=== PATIENT | male | born 1945 | race Two or more races ===

== ENCOUNTER 2016-11-23 19:18 | Inpatient (IN) | payer MEDICARE ==
[~2016-11-23] VITALS: Ht 180.3 cm; Wt 107.5 kg
[2016-11-23] MEDS ORDERED: UNOBMED (19:29)
[2016-11-23] MEDS ORDERED: Aspirin Baby 81mg ORAL ONE (19:30)
[2016-11-23 19:31] VITALS: BP 133/72
[2016-11-23 19:43] LABS: BASOPHILS % (AUTO) 1.3 % (0.0-2.0); EOSINOPHILS % (AUTO) 4.5 % (0.0-3.0); LYMPHOCYTES % (AUTO) 24.5 % (20.0-45.0); MEAN CORPUSCULAR HEMOGLOBIN 34.3 PG (27.0-31.0); MEAN CORPUSCULAR HGB CONC 33.8 G/DL (32.0-36.0); MEAN CORPUSCULAR VOLUME 101 FL (80-99); MONOCYTES % (AUTO) 8.3 % (1.0-10.0); NEUTROPHILS % (AUTO) 61.5 % (45.0-75.0); PLATELET COUNT 131 K/UL (150-450); RED BLOOD COUNT 4.62 M/UL (4.70-6.10); RED CELL DISTRIBUTION WIDTH 11.5 % (11.6-14.8); WHITE BLOOD COUNT 6.9 K/UL (4.8-10.8)
[2016-11-23 20:08] LABS: ALANINE AMINOTRANSFERASE 19 U/L (3-41); ALBUMIN/GLOBULIN RATIO 1.2 (1.0-2.7); ANION GAP 14 (5-15); ASPARTATE AMINO TRANSFERASE 22 U/L (5-40); CALCIUM 10.7 mg/dL (8.6-10.2); CARBON DIOXIDE 24 mEQ/L (20-30); CHLORIDE 100 mEQ/L (98-107); CREATININE 1.1 mg/dL (0.7-1.2); HEMOLYSIS 12; POTASSIUM 3.7 mEQ/L (3.4-4.9); SODIUM 138 mEQ/L (135-145); TROPONIN I < 0.30 ng/mL (<=0.30)
[2016-11-23 20:18] LABS: CKMB 4.1 ng/mL (< 6.7)
[2016-11-23 22:04] VITALS: BP 101/70
--- NOTE | 2016-11-23 23:35 | Emergency Room Report ---
History of Present Illness General Chief Complaint: Chest Pain Source: Patient, EMS Present Illness HPI Patient is 71-year-old male who presented after increased chest pain. Patient had onset of symptoms during rest. The patient been given nitroglycerin by paramedics as well as aspirin with resolution of his chest pain. Patient had prior history of dementia. He denies any current pain at this time. Patient had EKG done by EMS which showed rapid heartbeat as well as ST depression in multiple leads. Patient prior history of dementia and history is limited by patient's history dementia Allergies: Coded Allergies: No Known Allergies (Unverified , 11/23/16) Patient History Past Medical History: see triage record Reviewed Nursing Documentation: PMH: Agreed, PSxH: Agreed Nursing Documentation-PMH Hx Neurological Problems: Yes - parkinsons Review of Systems All Other Systems: limited - by mental status Physical Exam Vital Signs Date Time Temp Pulse Resp B/P (MAP) Pulse Ox O2 Delivery O2 Flow Rate FiO2 11/23/16 19:24 98.2 93 18 147/101 95 Room Air Sp02 EP Interpretation: reviewed, normal General Appearance: normal inspection, well appearing, no apparent distress, alert, GCS 15 Head: atraumatic ENT: normal ENT inspection, hearing grossly normal, normal voice Neck: normal inspection, full range of motion, supple, no bony tend Respiratory: normal inspection, lungs clear, normal breath sounds, no respiratory distress, no retraction, no wheezing Cardiovascular #1: regular rate, rhythm, no edema Gastrointestinal: normal inspection, normal bowel sounds, non tender, soft, no guarding, no hernia Genitourinary: no CVA tenderness Musculoskeletal: normal inspection, back normal, normal range of motion Neurologic: normal inspection, alert, responsive, furniture assembler III-XII nml as tested, speech normal, other - resting tremor Psychiatric: normal inspection, judgement/insight normal, mood/affect normal Skin: normal inspection, normal color, no rash Medical Decision Making Diagnostic Impression: Primary Impression: Chest pain Additional Impression: ACS (acute coronary syndrome) ER Course Patient presented for chest pain. Differential diagnosis included but was not limited to acute coronary syndrome, pulmonary embolism, pneumonia, aortic dissection, shingles, pneumothorax, aortic dissection, esophageal rupture, pericarditis. Because of complexity of patient's case laboratory testing and imaging studies were ordered.Patient was given aspirin by EMS. Patient was noted to have EKG with normal sinus rhythm with a rate of 76 short OH interval the nonspecific the ST changes. Dr. Jensen Dalton was contacted for inpatient management. Labs Test 11/23/16 19:30 White Blood Count 6.9 K/UL (4.8-10.8) Red Blood Count 4.62 M/UL (4.70-6.10) Hemoglobin 15.8 G/DL (14.2-18.0) Hematocrit 46.8 % (42.0-52.0) Mean Corpuscular Volume 101 FL (80-99) Mean Corpuscular Hemoglobin 34.3 PG (27.0-31.0) Mean Corpuscular Hemoglobin Concent 33.8 G/DL (32.0-36.0) Red Cell Distribution Width 11.5 % (11.6-14.8) Platelet Count 131 K/UL (150-450) Mean Platelet Volume 9.0 FL (6.5-10.1) Neutrophils (%) (Auto) 61.5 % (45.0-75.0) Lymphocytes (%) (Auto) 24.5 % (20.0-45.0) Monocytes (%) (Auto) 8.3 % (1.0-10.0) Eosinophils (%) (Auto) 4.5 % (0.0-3.0) Basophils (%) (Auto) 1.3 % (0.0-2.0) Sodium Level 138 mEQ/L (135-145) Potassium Level 3.7 mEQ/L (3.4-4.9) Chloride Level 100 mEQ/L (98-107) Carbon Dioxide Level 24 mEQ/L (20-30) Anion Gap 14 (5-15) Blood Urea Nitrogen 23 mg/dL (7-23) Creatinine 1.1 mg/dL (0.7-1.2) Estimat Glomerular Filtration Rate mL/min (>60) Glucose Level 192 mg/dL (74-106) Calcium Level 10.7 mg/dL (8.6-10.2) Total Bilirubin 0.4 mg/dL (0.0-1.2) Aspartate Amino Transf (AST/SGOT) 22 U/L (5-40) Alanine Aminotransferase (ALT/SGPT) 19 U/L (3-41) Alkaline Phosphatase 78 U/L (40-129) Total Creatine Kinase 140 U/L (38-174) Creatine Kinase MB 4.1 ng/mL (< 6.7) Creatine Kinase MB Relative Index 2.9 Troponin I < 0.30 ng/mL (<=0.30) Pro-B-Type Natriuretic Peptide 281 pg/mL (0-125) Total Protein 7.0 g/dL (6.6-8.7) Albumin 3.9 g/dL (3.5-5.2) Globulin 3.1 g/dL Albumin/Globulin Ratio 1.2 (1.0-2.7) EKG Diagnostic Results Rate: normal Rhythm: NSR ST Segments: no acute changes ASA given to the pt in ED: No Rhythm Strip Diag. Results EP Interpretation: yes Rhythm: NSR, other - frequent pvcs Last Vital Signs Date Time Temp Pulse Resp B/P (MAP) Pulse Ox O2 Delivery O2 Flow Rate FiO2 11/23/16 22:04 98.2 69 18 101/70 96 Room Air Disposition: ADMITTED INPATIENT Condition: Serious Referrals: NOT CHOSEN IPA/,REFERRING (PCP) Albert Anderson Nov 23, 2016 23:35
[2016-11-23 23:37] VITALS: BP 131/110
[2016-11-24] VITALS (8 sets, daily range): BP systolic 104–148; BP diastolic 68–86
[2016-11-24] MEDS: Metoprolol 25mg tab ORAL SCH ×3 (01:13→21:49)
[2016-11-24] MEDS: Aspirin Baby 81mg ORAL SCH (08:51)
[2016-11-24 09:13] LABS: ALANINE AMINOTRANSFERASE 22 U/L (3-41); ALBUMIN/GLOBULIN RATIO 1.1 (1.0-2.7); ANION GAP 12 (5-15); ASPARTATE AMINO TRANSFERASE 20 U/L (5-40); CALCIUM 10.3 mg/dL (8.6-10.2); CARBON DIOXIDE 24 mEQ/L (20-30); CHLORIDE 101 mEQ/L (98-107); CHOLESTEROL 187 mg/dL (< 200); CHOLESTEROL/HDL RATIO 4.6 (3.3-4.4); CREATININE 0.7 mg/dL (0.7-1.2); HEMOLYSIS 12; LDL CHOLESTEROL (CALC.) 131 mg/dL (60-99); SODIUM 137 mEQ/L (135-145); TOTAL PROTEIN 6.6 g/dL (6.6-8.7)
[2016-11-24 09:17] LABS: THYROID STIMULATING HORMONE 0.965 uIU/mL (0.300-4.500)
--- NOTE | 2016-11-24 10:48 | History & Physical ---
History and Physical History & Physicial 71-year-old male who presented for chest pain. Patient had onset of symptoms during rest and has been persistent. The patient been given nitroglycerin by paramedics as well as aspirin with resolution of his chest pain. Patient with some confusion and dementia. He admits to persistent pain. Patient had EKG done by EMS which showed rapid heartbeat as well as ST depression in multiple leads. Patient prior history of dementia and history is limited by patient's history dementia. care discussed with the family in detail. Allergies: No Known Allergies (Unverified , 11/23/16) Past Medical History: Dementia, Parkinsons disease Family history: not contributory to the above Med/Allergy: reviewed and reconciled Physical exam WDWN NAD clear breath sounds bilaterally without rhonchi or wheeze [id number] without MRG NABS nontender no HSM no CCE nonfocal Laboratory Tests Test 11/23/16 19:30 11/24/16 08:00 White Blood Count 6.9 K/UL (4.8-10.8) Red Blood Count 4.62 M/UL (4.70-6.10) L Hemoglobin 15.8 G/DL (14.2-18.0) Hematocrit 46.8 % (42.0-52.0) Mean Corpuscular Volume 101 FL (80-99) H Mean Corpuscular Hemoglobin 34.3 PG (27.0-31.0) H Mean Corpuscular Hemoglobin Concent 33.8 G/DL (32.0-36.0) Red Cell Distribution Width 11.5 % (11.6-14.8) L Platelet Count 131 K/UL (150-450) L Mean Platelet Volume 9.0 FL (6.5-10.1) Neutrophils (%) (Auto) 61.5 % (45.0-75.0) Lymphocytes (%) (Auto) 24.5 % (20.0-45.0) Monocytes (%) (Auto) 8.3 % (1.0-10.0) Eosinophils (%) (Auto) 4.5 % (0.0-3.0) H Basophils (%) (Auto) 1.3 % (0.0-2.0) Sodium Level 138 mEQ/L (135-145) 137 mEQ/L (135-145) Potassium Level 3.7 mEQ/L (3.4-4.9) 4.0 mEQ/L (3.4-4.9) Chloride Level 100 mEQ/L (98-107) 101 mEQ/L (98-107) Carbon Dioxide Level 24 mEQ/L (20-30) 24 mEQ/L (20-30) Anion Gap 14 (5-15) 12 (5-15) Blood Urea Nitrogen 23 mg/dL (7-23) 15 mg/dL (7-23) Creatinine 1.1 mg/dL (0.7-1.2) 0.7 mg/dL (0.7-1.2) Estimat Glomerular Filtration Rate mL/min (>60) mL/min (>60) Glucose Level 192 mg/dL (74-106) H 209 mg/dL (74-106) H Calcium Level 10.7 mg/dL (8.6-10.2) H 10.3 mg/dL (8.6-10.2) H Total Bilirubin 0.4 mg/dL (0.0-1.2) 0.6 mg/dL (0.0-1.2) Aspartate Amino Transf (AST/SGOT) 22 U/L (5-40) 20 U/L (5-40) Alanine Aminotransferase (ALT/SGPT) 19 U/L (3-41) 22 U/L (3-41) Alkaline Phosphatase 78 U/L (40-129) 67 U/L (40-129) Total Creatine Kinase 140 U/L (38-174) Creatine Kinase MB 4.1 ng/mL (< 6.7) Creatine Kinase MB Relative Index 2.9 Troponin I < 0.30 ng/mL (<=0.30) Pro-B-Type Natriuretic Peptide 281 pg/mL (0-125) H Total Protein 7.0 g/dL (6.6-8.7) 6.6 g/dL (6.6-8.7) Albumin 3.9 g/dL (3.5-5.2) 3.5 g/dL (3.5-5.2) Globulin 3.1 g/dL 3.1 g/dL Albumin/Globulin Ratio 1.2 (1.0-2.7) 1.1 (1.0-2.7) Triglycerides Level 75 mg/dL (< 150) Cholesterol Level 187 mg/dL (< 200) LDL Cholesterol 131 mg/dL (60-99) H HDL Cholesterol 41 mg/dL (> 60) Cholesterol/HDL Ratio 4.6 (3.3-4.4) H Thyroid Stimulating Hormone (TSH) 0.965 uIU/mL (0.300-4.500) IMPRESSION chest pain ACS dementia Parkinsons disease PLAN serial troponin nitrates aspirin cardiology followup impression, plan, and exam edited and reviewed in detail care discussed with MARBIN LOPEZ Nov 24, 2016 10:48
[2016-11-24] MEDS ORDERED: Milk of Magnesia 30ml Ud ORAL ONE (11:30)
--- NOTE | 2016-11-24 12:47 | Diagnostic Imaging Report ---
Indication: Dyspnea Comparison: None A single view chest radiograph was obtained. Findings: Mild interstitial opacities are present with prominent vascularity and borderline cardiomegaly. Bones are osteopenic. Impression: Suspected mild interstitial edema.
[2016-11-24] MEDS: Docusate 100mg cap ORAL SCH (19:43)
[2016-11-24] MEDS ORDERED: [UNRECOGNIZED DRUG - OTHER] PO (20:16)
[2016-11-24] MEDS ORDERED: NAMENDA10 MG ORAL (20:16)
[2016-11-24] MEDS ORDERED: SINEMET 25/1001 EA ORAL (20:16)
[2016-11-24] MEDS ORDERED: ALPRAZOLAM0.5 M2 ORAL (20:16)
[2016-11-24] MEDS ORDERED: Heparin 5000 units/ml inj SUBQ SCH (21:00)
[2016-11-24] MEDS ORDERED: Nitroglycerin Subl 0.4mg tab (Bottle Of 25) SL PRN (21:15)
[2016-11-25] MEDS ORDERED: ALPRAZolam 0.5mg tab ORAL ONE
[2016-11-25 04:12] VITALS: BP 114/58
[2016-11-25 06:48] LABS: BASOPHILS % (AUTO) 0.8 % (0.0-2.0); EOSINOPHILS % (AUTO) 3.3 % (0.0-3.0); LYMPHOCYTES % (AUTO) 24.4 % (20.0-45.0); MEAN CORPUSCULAR HEMOGLOBIN 34.4 PG (27.0-31.0); MEAN CORPUSCULAR VOLUME 101 FL (80-99); MEAN PLATELET VOLUME 8.8 FL (6.5-10.1); MONOCYTES % (AUTO) 7.9 % (1.0-10.0); NEUTROPHILS % (AUTO) 63.6 % (45.0-75.0); PLATELET COUNT 140 K/UL (150-450); RED BLOOD COUNT 4.64 M/UL (4.70-6.10); RED CELL DISTRIBUTION WIDTH 11.6 % (11.6-14.8); WHITE BLOOD COUNT 7.1 K/UL (4.8-10.8)
--- NOTE | 2016-11-25 07:01 | Progress Note ---
DATE: 11/24/2016 CARDIOLOGY PROGRESS NOTE Subjective: The patient is confused. He gets easily fatigued and short of breath with activity in the room. He had chest pain again this evening. It did resolve spontaneously. His concomitant EKG revealed sinus rhythm with no acute ST changes, but nonspecific ST-T wave abnormalities. OBJECTIVE: Vital Signs: Blood pressure 148/80, pulse 62, respiratory rate 20, and afebrile. NECK: Supple. LUNGS: Diminished breath sounds. Cardiac: Regular rhythm and rate. Normal S1 and S2 with a fourth heart sound. ABDOMEN: Obese and soft. No focal tenderness. EXTREMITIES: Trace dependent edema. Laboratory And Diagnostic Data: Total cholesterol 187 with LDL of 131 and HDL of 41. Troponin #2 is pending. Chemistry panel within normal limits. A 2D echocardiogram reviewed normal ejection fraction with concentric hypertrophy and diastolic relaxation abnormality. IMPRESSION: 1. Acute coronary syndrome. 2. Dyslipidemia. 3. Hypertensive heart disease. 4. Parkinson's disease with dementia. 5. Nonsustained ventricular ectopy. 6. Sinus bradycardia, on beta-kylah. PLAN: 1. Cardiac monitoring. 2. Nitrates p.r.n. chest pain. 3. Continued anti-platelet and anti-lipid therapy. 4. Titrate antihypertensive control. 5. Decrease beta-kylah dosing. 6. Adenosine myocardial perfusion scan to assess coronary flow reserve. Regino Guzman M.D. DR: NEY JOB#: [id number] CC:
[2016-11-25 08:00] VITALS: BP 156/102
[2016-11-25 08:06] LABS: ALANINE AMINOTRANSFERASE 20 U/L (3-41); ALBUMIN/GLOBULIN RATIO 1.2 (1.0-2.7); ANION GAP 10 (5-15); ASPARTATE AMINO TRANSFERASE 18 U/L (5-40); CALCIUM 10.9 mg/dL (8.6-10.2); CARBON DIOXIDE 26 mEQ/L (20-30); CHLORIDE 102 mEQ/L (98-107); CREATININE 0.7 mg/dL (0.7-1.2); HEMOLYSIS 18; POTASSIUM 4.4 mEQ/L (3.4-4.9); SODIUM 138 mEQ/L (135-145); TOTAL PROTEIN 6.4 g/dL (6.6-8.7)
[2016-11-25 08:07] LABS: TROPONIN I 0.37 ng/mL (<=0.30)
[2016-11-25] MEDS: Aspirin Baby 81mg ORAL SCH (08:29)
[2016-11-25] MEDS: Memantine 10mg tab ORAL SCH (08:29)
[2016-11-25] MEDS: Docusate 100mg cap ORAL SCH ×2 (08:33→18:01)
[2016-11-25] MEDS ORDERED: Heparin 5000 units/ml inj SUBQ SCH (09:00)
[2016-11-25 11:51] VITALS: BP 113/60
--- NOTE | 2016-11-25 12:15 | Physician Query ---
PLEASE COMPLETE DOCUMENT BEFORE SIGNING Dear Dr. Bravo Date: _11/25/2016 Hr Recruiter/CDS Name: _Talib Gomez MD__ Hr Recruiter/CDS Phone No.: _Ext #[phone]____ Exercise your independent professional judgment when responding to the query. Questions asked do not imply a particular answer is desired or expected. We greatly appreciate your clarification on this issue. CLINICAL FINDINGS SHOW: Troponin elevated to 0.37 ng/mL per test result on 11/25/16 at 05:35 Please respond to the following question: Is there a diagnosis specific to these symptoms or values? If so please state below. PHYSICIAN RESPONSE: Condition Present on Admission: [] Yes [] No []Clinically Undeterminable Please also document in your Progress Notes and/or Discharge Summary and indicate if the condition was present on admission. Regino Guzman M.D. Date & Time [facility]
[2016-11-25 12:24] LABS: TROPONIN I < 0.30 ng/mL (<=0.30)
[2016-11-25] MEDS: Metoprolol 25mg tab ORAL SCH ×2 (14:00→20:24)
--- NOTE | 2016-11-25 15:10 | General Progress Note ---
Assessment/Plan Assessment/Plan IMPRESSION chest pain ACS dementia Parkinsons disease PLAN serial troponin nitrates aspirin heparin cardiology followup and recommendations pending not ready for discharge impression, plan, and exam edited and reviewed in detail care discussed with RN Subjective Allergies: Coded Allergies: No Known Allergies (Unverified , 11/23/16) Subjective care noted and reviewed troponin elevated stress cancelled cards aware Objective Last 24 Hour Vital Signs Date Time Temp Pulse Resp B/P (MAP) Pulse Ox O2 Delivery O2 Flow Rate FiO2 11/25/16 14:00 57 113/60 11/25/16 12:00 62 11/25/16 11:51 96.9 57 20 113/60 100 Room Air 11/25/16 08:00 97.5 60 22 156/102 99 Room Air 11/25/16 08:00 57 11/25/16 04:12 98.8 56 21 114/58 94 Room Air 11/25/16 04:00 61 11/25/16 00:00 59 11/24/16 23:57 98.1 60 18 136/68 96 Room Air 11/24/16 21:49 62 148/80 11/24/16 20:04 97.3 62 20 148/80 98 Room Air 11/24/16 20:00 99 11/24/16 16:00 54 11/24/16 15:29 98.6 56 18 140/74 96 Room Air Intake and Output 11/25/16 11/26/16 19:00 07:00 Intake Total 250 ml Balance 250 ml Intake Oral 250 ml Laboratory Tests 11/25/16 05:30: White Blood Count 7.1, Red Blood Count 4.64L, Hemoglobin 16.0, Hematocrit 47.0, Mean Corpuscular Volume 101H, Mean Corpuscular Hemoglobin 34.4H, Mean Corpuscular Hemoglobin Concent 34.0, Red Cell Distribution Width 11.6, Platelet Count 140L, Mean Platelet Volume 8.8, Neutrophils (%) (Auto) 63.6, Lymphocytes ( %) (Auto) 24.4, Monocytes (%) (Auto) 7.9, Eosinophils (%) (Auto) 3.3H, Basophils (%) (Auto) 0.8 11/25/16 05:35: Sodium Level 138, Potassium Level 4.4, Chloride Level 102, Carbon Dioxide Level 26, Anion Gap 10, Blood Urea Nitrogen 12, Creatinine 0.7, Estimat Glomerular Filtration Rate , Glucose Level 137H, Calcium Level 10.9H, Total Bilirubin 0.6, Aspartate Amino Transf (AST/SGOT) 18, Alanine Aminotransferase (ALT/SGPT) 20, Alkaline Phosphatase 70, Troponin I 0.37*H, Total Protein 6.4L, Albumin 3.6, Globulin 2.8, Albumin/Globulin Ratio 1.2, Thyroid Stimulating Hormone (TSH) 1.410 11/25/16 11:55: Troponin I < 0.30 Height (Feet): 5 Height (Inches): 11.00 Weight (Pounds): 237 Objective WDWN NAD clear breath sounds bilaterally without rhonchi or wheeze [id number] without MRG NABS nontender no HSM no CCE nonfocal MARBIN HU Nov 25, 2016 15:09
[2016-11-25 16:00] VITALS: BP 99/58
--- NOTE | 2016-11-25 18:15 | Consultation ---
DATE OF CONSULTATION: 11/23/2016 CARDIOLOGY CONSULTATION REQUESTING PHYSICIAN: Jensen Dalton M.D. REASON FOR CONSULTATION: Chest pain. History Of Present Illness: This is a 71-year-old male, who presented to the emergency room complaining of chest pain. His symptoms occurred at rest. The patient was given nitroglycerin by paramedics and apparently improved. Aspirin was given as well. The patient does have history of Parkinson disease with some degree of dementia. He is unable to give much detailed history. At the time of his initial emergency room evaluation, he was chest pain-free. His initial EKG performed in the field revealed sinus tachycardia with ST-T wave changes diffusely. PAST MEDICAL HISTORY: Otherwise unknown. ALLERGIES: None. MEDICATIONS: Prior to admission, presently not available. FAMILY HISTORY: Noncontributory. SOCIAL HISTORY: No record of smoking, alcohol, or substance abuse. REVIEW OF SYSTEMS: Again, cannot be reliably obtained. PHYSICAL EXAMINATION: GENERAL: He is a moderately obese male, in no acute distress. Vital Signs: Initial blood pressure 147/101 with heart rate 93 and respiratory rate 18. He was afebrile. Subsequent blood pressure 133/72, heart rate 75, and respiratory rate 18. HEENT: Conjunctivae pink. Sclerae are anicteric. Oropharynx clear. Mucous membranes moist. Neck: Supple. Jugular venous pressure is difficult to assess due to obesity. No thyromegaly. Lungs: With diminished breath sounds. No wheezing or rales. Increased AP diameter of the chest. No gynecomastia. CARDIAC: Regular rhythm and rate. Distant S1 and S2 with no murmur. ABDOMEN: Obese and soft. EXTREMITIES: Good pulses with no edema. Neurologic: Reveals slight increased rigidity and tone. Mild confusion. Laboratory And Diagnostic Data: EKG revealed sinus tachycardia with occasional PVCs and nonspecific ST-T wave changes. Troponin #1 is negative. Brain-natriuretic peptide is 281. Potassium 3.7, BUN 22, and creatinine 1.1. IMPRESSION: 1. Acute coronary syndrome. 2. Hypertensive urgency. 3. History of Parkinson disease with dementia. 4. Nonsustained ventricular ectopy. PLAN OF CARE: 1. Cardiac monitoring. 2. Nasal oxygen. 3. Oral aspirin. 4. Check lipid panel. 5. P.r.n. nitrates for chest pain. 6. Beta-blockade. 7. Echocardiogram. 8. Assessment of coronary flow reserve to follow. 9. Serial troponin levels will be checked. Regino Guzman M.D. DR: NEY JOB#: [id number] CC:
[2016-11-25 20:00] VITALS: BP 111/71
[2016-11-25] MEDS ORDERED: Fleet's Enema 133ml RECTAL SCH (20:00)
[2016-11-25] MEDS ORDERED: ALPRAZolam 0.5mg tab ORAL SCH (21:00)
[2016-11-26] VITALS: BP 130/66
[2016-11-26 04:00] VITALS: BP 103/53
--- NOTE | 2016-11-26 05:45 | Progress Note ---
DATE: 11/25/2016 CARDIOLOGY PROGRESS NOTE Subjective: The patient has had chest pain last night. His troponin level increased to 0.37. Today, it normalized again. The patient has no recollection of any chest pain. He was evaluated today with his [id number] at bedside. OBJECTIVE: Vital Signs: Blood pressure 113/60, pulse 57, and respiratory rate 20. NECK: Supple. LUNGS: Clear. CARDIAC: Regular. Normal S1 and S2 with a fourth heart sound. ABDOMEN: Soft. EXTREMITIES: Trace edema. Laboratory And Diagnostic Data: White count 7 and hemoglobin 16. Potassium 4.4, BUN 12, and creatinine 0.7. EKG with sinus rhythm artifact with nonspecific ST changes. IMPRESSION: 1. Acute coronary syndrome. 2. Troponin bump. 3. 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 4. Hypertensive heart disease. 5. Diastolic dysfunction. 6. Dyslipidemia. 7. Nonsustained ventricular ectopy. PLAN: 1. Continue cardiac monitoring. 2. Anti-platelet and anti-lipid therapy. 3. Continue beta blockade. 4. Stress test was canceled today due to chest pain and rise in troponin level. The patient will need a noninvasive assessment of coronary flow reserve. He is anxious to leave the hospital. If his condition stabilizes over the next 24 hours, we may be able to pursue this test as an outpatient. Regino Guzman M.D. DR: NEY JOB#: [id number] CC:
[2016-11-26 08:24] VITALS: BP 120/56
[2016-11-26] MEDS: Docusate 100mg cap ORAL SCH (08:42)
[2016-11-26] MEDS: Aspirin Baby 81mg ORAL SCH (08:42)
[2016-11-26] MEDS: Memantine 10mg tab ORAL SCH (08:43)
[2016-11-26 08:44] VITALS: BP 120/56
[2016-11-26] MEDS: Metoprolol 25mg tab ORAL SCH (08:44)
--- NOTE | 2016-11-26 09:13 | General Progress Note ---
Assessment/Plan Assessment/Plan IMPRESSION chest pain ACS dementia Parkinsons disease PLAN serial troponin noted aspirin heparin cardiology followup and recommendations as outpatient dc home; cleared by cards impression, plan, and exam edited and reviewed in detail care discussed with RN Subjective Allergies: Coded Allergies: No Known Allergies (Unverified , 11/23/16) Subjective care noted and reviewed troponin normal; stress cancelled cards aware Objective Last 24 Hour Vital Signs Date Time Temp Pulse Resp B/P (MAP) Pulse Ox O2 Delivery O2 Flow Rate FiO2 11/26/16 08:44 76 120/56 11/26/16 08:24 98.7 76 20 120/56 99 Nasal Cannula 2.0 11/26/16 04:00 50 11/26/16 04:00 97.7 71 20 103/53 96 Room Air 11/26/16 00:00 54 11/26/16 00:00 97.7 66 20 130/66 96 Room Air 11/25/16 20:24 80 111/71 11/25/16 20:00 97.7 80 20 111/71 97 Room Air 11/25/16 20:00 72 11/25/16 16:00 97.2 57 20 99/58 97 Room Air 11/25/16 16:00 58 11/25/16 14:00 57 113/60 11/25/16 12:00 62 11/25/16 11:51 96.9 57 20 113/60 100 Room Air Intake and Output 11/26/16 11/27/16 19:00 07:00 Intake Total 420 ml Balance 420 ml Intake Oral 420 ml Laboratory Tests 11/25/16 11:55: Troponin I < 0.30 Height (Feet): 5 Height (Inches): 11.00 Weight (Pounds): 237 Objective WDWN NAD clear breath sounds bilaterally without rhonchi or wheeze [id number] without MRG NABS nontender no HSM no CCE nonfocal MARBIN HU Nov 26, 2016 09:13
--- NOTE | 2016-11-27 06:45 | Progress Note ---
DATE: 11/26/2016 CARDIOLOGY PROGRESS NOTE Subjective: The patient has no recurring chest pain. He is anxious to go home. OBJECTIVE: Vital Signs: Blood pressure 120/56, pulse 76, respiratory rate 20, and afebrile. NECK: Supple. LUNGS: Clear. CARDIAC: Regular. Normal S1 and S2 with a fourth heart sound. ABDOMEN: Obese. EXTREMITIES: No edema. NEUROLOGIC: With increased rigidity and mild dementia. LABORATORY DATA: Noted. IMPRESSION: 1. Acute coronary syndrome, now stabilized. 2. Hypertensive heart disease. 3. Parkinson's disease with dementia. PLAN: 1. Continue current medication regimen including anti-platelet, anti-lipid, and antihypertensive regimen. 2. Outpatient followup for stress testing. 3. Discussed with the patient's iuvtxkth-gw-fay yesterday. Regino Guzman M.D. DR: NEY JOB#: [id number] CC:
--- NOTE | 2016-11-27 16:03 | Cardiology Report ---
APPROVED REPORT EKG Measurement Heart [id number] [place] 128P [id number] Normal sinus rhythm with sinus arrhythmia Nonspecific ST and T wave abnormality Abnormal ECG
[2016-11-28] MEDS ORDERED: METOPROLOL TART25 MG ORAL (08:44)
[2016-11-28] MEDS ORDERED: ASPIRIN-LOW81 MG ORAL (08:44)
[2016-11-28] MEDS ORDERED: PRAVACHOL20 MG ORAL (08:44)
--- NOTE | 2016-11-28 08:51 | Discharge Summary ---
Discharge Summary Hospital Course Date of Admission Nov 23, 2016 at 22:02 Date of Discharge Nov 26, 2016 at 10:30 Admitting Diagnosis chest pain, acs HPI Leeroy Bella is a 71 year old male who was admitted on Nov 23, 2016 at 22:02 for Chest Pain, Acute Coronary Syndrome Hospital Course dc summary #[id number] Discharge Medications New Medications: Aspirin (Aspirin EC) 81 Mg Tablet.dr 81 MG ORAL DAILY, #30 TAB Metoprolol Tartrate* (Metoprolol Tartrate*) 25 Mg Tablet 25 MG ORAL EVERY 12 HOURS, #60 TAB Pravastatin Sod* (Pravachol*) 20 Mg Tablet 20 MG ORAL BEDTIME, #30 TAB Continued Medications: Alprazolam (Alprazolam) 0.5 Mg Tab.rapdis 0.5 MG ORAL PRN for Insomnia, TAB Levodopa/Carbidopa (Carbidopa-Levodopa 25-100 Tab) 1 Each Tablet 1 TAB ORAL THREE TIMES A DAY, TAB Memantine Hcl* (Namenda*) 10 Mg Tablet 20 MG ORAL DAILY, TAB Unable to Obtain Medications (Unable To Obtain Meds) 1 Ea Ea [nootropil] () 800 MG PO DAILY Discharge Discharge Disposition Patient was discharged to Home with Home Health(06) Discharge Diagnoses: Discharge Instructions Discharge Instructions Special Instructions I have been assigned to complete a D/C Summary on this account. I was not involved in the patient management Dafne Flor NP (Vanchtein) Nov 28, 2016 08:51
--- NOTE | 2016-11-28 16:10 | Cardiology Report ---
APPROVED REPORT EXAM: Two-dimensional and M-mode echocardiogram with Doppler and color Doppler. INDICATION Angina Pectoris M-Mode DIMENSIONS IVSd2.6 (0.7-1.1cm)Left Atrium (MM)4.3 (1.6-4.0cm) LVDd4.0 (3.5-5.6cm)Aortic Root3.2 (2.0-3.7cm) PWd1.7 (0.7-1.1cm)Aortic Cusp Exc.2.2 (1.5-2.0cm) LVDs2.5 (2.5-4.0cm) PWs2.5 cm Normal left ventricular chamber size, systolic function and wall motion. Left ventricular ejection fraction estimated to be 60-65 %. No evidence of left ventricular hypertrophy. No evidence of pericardial effusion. All other cardiac chamber sizes are within normal limits. Focal aortic valve sclerosis with adequate cusp excursion. Thickened mitral valve leaflets with normal excursion. Mild mitral annulus and aortic root calcification. Pulmonic valve not well visualized. Normal tricuspid valve structure. IVC is normal in size with physiological collapse. A color flow and spectral Doppler study was performed and revealed: No mitral regurgitation. Mitral diastolic velocities suggest reduced left ventricular relaxation c/w diastolic dysfunction grade 1. No tricuspid regurgitation.
--- NOTE | 2016-11-29 05:15 | Discharge Summary 2 SIG ---
DATE OF ADMISSION: 11/23/2016 DATE OF DISCHARGE: 11/26/2016 Reason for admission: 71-year-old male with a history of hypertension and Parkinson disease, presented with chest pain. Onset happened during the rest. The patient was given nitroglycerin and aspirin by the paramedics with resolution of chest pain. Upon arrival, the patient denied any chest pain. History was limited by underlying dementia. Troponin was negative. Stable hemoglobin and hematocrit. No leukocytosis. Chest x-ray revealed suspected mild interstitial edema, pro BNP -281. Pulse oximetry was stable on room air. EKG revealed normal sinus rhythm with sinus arrhythmia, nonspecific ST and T wave abnormalities. The patient was admitted for further management. ADMITTING DIAGNOSES: 1. Chest pain 2. Possible acute coronary syndrome. 3. Parkinson disease with dementia. 4. Hypertensive heart disease. Hospital Course: The patient was admitted to telemetry floor. Cardiology consult was requested. Echocardiogram revealed preserved ejection fraction of 60 to 65%. No evidence of LVH, mild diastolic dysfunction. The patient was on antiplatelets and anti-lipid regimen. Lipid panel revealed elevated LDL of 131. The patient's family was educated on low cholesterol diet. Second troponin minimally elevated -0.37. Stress test, which was initially scheduled by grinding operator to assess cardiac flow reserve, was canceled due to the elevated troponin. On telemetry noted nonsustained ventricular ectopy and sinus bradycardia. Beta-kylah dose was decreased. Blood pressure was stable with current regimen. Parkinson medications were continued. Supplemental oxygen and pulmonary toilet provided as needed. Pulse oximetry was stable on room air. TSH was within normal limits. Last troponin was negative. The patient was anxious to go home. Tool Pusher cleared for discharge and stressed importance of noninvasive cardiac stress test as an outpatient. The patient was stable for discharge home with home health services with continuation of antiplatelets, anti-lipid therapy, and antihypertensive regimen. Nitrates as needed for control of chest pain. DISCHARGE DIAGNOSES: 1. Acute coronary syndrome. 2. Dyslipidemia. 3. Hypertensive heart disease, 4. diastolic dysfunction, 5. Nonsustained ventricular ectopy. 6. Parkinson's disease with dementia. 7. Sinus bradycardia (dose of beta-kylah decreased). DISCHARGE MEDICATIONS: See medication reconciliation list. Discharge Instructions: The patient was discharged home with home health services. Follow up with primary medical doctor. Recommended noninvasive outpatient stress test. Jensen Dalton M.D. I have been assigned to dictate discharge summary on this account and I was not involved in the patient's management. Dafne Flor (Vanchtein) N.PMegan DR: Amalia JOB#: [id number] CC: MARTINA
== END 2016-11-26 10:30 | disposition home health service (06) | DRG 311 ==
LOC: EDBD 19:18 → EMR 19:58 → 2E 22:02 → EDBEDREQ 22:36
DX: I24.9 Acute ischemic heart disease, unspecified (principal); G20 Parkinson's disease; I11.9 Hypertensive heart disease without heart failure; I16.0 Hypertensive urgency; E78.5 Hyperlipidemia, unspecified; F02.80 Dementia in other diseases classified elsewhere, unspecified severity, without behavioral disturbance, psychotic disturbance, mood disturbance, and anxiety; I49.3 Ventricular premature depolarization
CPT/HCPCS: 36415; 71010; 80053; 80061; 82550; 82553; 83880; 84443; 84484; 85025; 93005; 93306; 99285

== ENCOUNTER 2016-12-01 15:48 | Emergency (ER) | payer MEDICARE ==
[~2016-12-01] VITALS: Ht 177.8 cm; Wt 90.7 kg
[~2016-12-01 15:48] MED LIST: ALPRAZOLAM0.5 M2 ORAL; ASPIRIN-LOW81 MG ORAL; METOPROLOL TART25 MG ORAL; NAMENDA10 MG ORAL; PRAVACHOL20 MG ORAL; SINEMET 25/1001 EA ORAL; UNOBMED; [UNRECOGNIZED DRUG - OTHER] PO
[2016-12-01 15:59] VITALS: BP 187/72
[2016-12-01] MEDS ORDERED: ALPRAZOLAM0.5 M2 ORAL (16:05)
[2016-12-01 16:10] VITALS: BP 165/72
--- NOTE | 2016-12-01 16:14 | Emergency Room Report ---
History of Present Illness General Chief Complaint: General Complaint Source: Patient, Medical Record Present Illness HPI [id number], recently DCed on 11/27 for chest pain Here for "cant sleep since DC from hospital." Requesting medication he got while he was admitted here which looks like 0.5mg xanax PRN insomnia at night Denies chest pain, SOB, abd pain, headache, fever/chills, nausea/vomiting, urinary complaints to name a few Ambulated into ED with cane assistance No complaints On admission: patient was r/o for ACS Initial trop 0, spike in 2nd trop, then normal 3rd trop Did not have stress test but cleared by Cardiology for DC Allergies: Coded Allergies: No Known Allergies (Unverified , 11/23/16) Patient History Past Medical History: HTN Past Surgical History: none Pertinent Family History: none Social History: Denies: smoking, alcohol use, drug use Immunizations: UTD Reviewed Nursing Documentation: PMH: Agreed, PSxH: Agreed Nursing Documentation-PMH Past Medical History: No History, Except For Hx Cardiac Problems: Yes - Bilateral knee surgery Hx Hypertension: Yes Hx Pacemaker: No Hx Asthma: No Hx COPD: No Hx Diabetes: No Hx Cancer: No Hx Gastrointestinal Problems: No Hx Neurological Problems: Yes - Parkinson' disease Hx Cerebrovascular Accident: No Hx Parkinson's Disease: Yes Hx Seizures: No Hx Tremors: Yes Review of Systems All Other Systems: negative except mentioned in HPI Physical Exam Vital Signs Date Time Temp Pulse Resp B/P (MAP) Pulse Ox O2 Delivery O2 Flow Rate FiO2 12/01/16 15:53 98.4 82 16 187/72 96 Room Air Sp02 EP Interpretation: reviewed, normal General Appearance: normal inspection, well appearing, no apparent distress, alert, GCS 15, non-toxic, other - Well appearing elderly male ambulating with cane Head: normocephalic, atraumatic Eyes: bilateral eye PERRL, bilateral eye EOMI ENT: normal ENT inspection, hearing grossly normal, normal voice Neck: normal inspection, full range of motion, supple, no bony tend Respiratory: normal inspection, lungs clear, normal breath sounds, no respiratory distress, no retraction, no wheezing Cardiovascular #1: regular rate, rhythm, no edema Gastrointestinal: normal inspection, normal bowel sounds, non tender, soft, no guarding, no hernia Genitourinary: no CVA tenderness Musculoskeletal: normal inspection, back normal, normal range of motion, Nicolasa' s Sign negative Neurologic: normal inspection, alert, oriented x3, responsive, 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, motor strength/tone normal, speech normal Psychiatric: normal inspection, judgement/insight normal, mood/affect normal Skin: normal inspection, normal color, no rash Lymphatic: normal inspection Medical Decision Making Diagnostic Impression: Primary Impression: Insomnia Qualified Codes: F51.05 - Insomnia due to other mental disorder; F99 - Mental disorder, not otherwise specified ER Course Insomnia likely d/t underlying dementia/parkinsons Patient also stays up late watching TV, sleeps during the day RX Xanax Info on insomnia provided Advised NO late-night TV, artificial lights, and avoid daytime naps Patient visiting from [place] but has MediCal but NO PMD Gave list of low-cost/free clinics and also advised STRICT PMD followup in next week Return for repeat chest pain, SOB, or other concerns Last Vital Signs Date Time Temp Pulse Resp B/P (MAP) Pulse Ox O2 Delivery O2 Flow Rate FiO2 12/01/16 15:53 98.4 82 16 187/72 96 Room Air Status: improved Disposition: HOME, SELF-CARE Condition: Improved Scripts Alprazolam (ALPRAZOLAM) 0.5 Mg Tab.rapdis 0.5 MG ORAL QHS for anxiety for 14 Days, #14 TAB Prov: SREEDHAR DUNCAN M.D. 12/01/16 Referrals: NOT CHOSEN IPA/,REFERRING (PCP) Patient Instructions: Insomnia Additional Instructions: - Please follow up with a primary care doctor or medical clinic in next week to re-evaluate patient and insomnia - Return to ER for chest pain, shortness of breath or other concerning symptoms - Take ONE 0.5mg tablet of xanax each night ONLY as needed for insomnia SREEDHAR DUNCAN M.D. Dec 01, 2016 16:14
== END 2016-12-01 16:10 | disposition home or self-care (01) ==
LOC: EMR 16:05
DX: G47.00 Insomnia, unspecified (principal); I10 Essential (primary) hypertension; G20 Parkinson's disease; R25.1 Tremor, unspecified
CPT/HCPCS: 99283

== ENCOUNTER 2016-12-15 17:51 | Emergency (ER) | payer MEDICARE ==
[~2016-12-15] VITALS: Ht 170.2 cm; Wt 2.6 kg
[2016-12-15 19:05] LABS: BASOPHILS % (AUTO) 0.9 % (0.0-2.0); EOSINOPHILS % (AUTO) 3.7 % (0.0-3.0); LYMPHOCYTES % (AUTO) 28.3 % (20.0-45.0); MEAN CORPUSCULAR HEMOGLOBIN 31.6 PG (27.0-31.0); MEAN CORPUSCULAR HGB CONC 31.7 G/DL (32.0-36.0); MEAN CORPUSCULAR VOLUME 100 FL (80-99); MEAN PLATELET VOLUME 8.4 FL (6.5-10.1); MONOCYTES % (AUTO) 9.5 % (1.0-10.0); NEUTROPHILS % (AUTO) 57.6 % (45.0-75.0); PLATELET COUNT 127 K/UL (150-450); RED BLOOD COUNT 4.85 M/UL (4.70-6.10); RED CELL DISTRIBUTION WIDTH 11.4 % (11.6-14.8); WHITE BLOOD COUNT 6.4 K/UL (4.8-10.8)
[2016-12-15 19:06] VITALS: BP 176/101
[2016-12-15 19:15] LABS: ALANINE AMINOTRANSFERASE 7 U/L (3-41); ALBUMIN/GLOBULIN RATIO 1.2 (1.0-2.7); ANION GAP 12 (5-15); ASPARTATE AMINO TRANSFERASE 15 U/L (5-40); CARBON DIOXIDE 25 mEQ/L (20-30); CHLORIDE 100 mEQ/L (98-107); CREATININE 0.8 mg/dL (0.7-1.2); HEMOLYSIS 5; POTASSIUM 3.9 mEQ/L (3.4-4.9); SODIUM 137 mEQ/L (135-145); TOTAL PROTEIN 7.1 g/dL (6.6-8.7)
[2016-12-15 19:19] LABS: TROPONIN I < 0.30 ng/mL (<=0.30)
[2016-12-15 19:50] LABS: APPEARANCE,URINE CLEAR; KETONES,URINE 2+ (NEGATIVE); LEUKOCYTE ESTERASE ,URINE 1+ (NEGATIVE); NITRITE,URINE NEGATIVE (NEGATIVE); PH,URINE 6.5 (4.5-8.0); PROTEIN,URINE 3+ (NEGATIVE); UROBILINOGEN,URINE 1 MG/DL (0.0-1.0)
[2016-12-15 19:57] LABS: CKMB 1.6 ng/mL (< 6.7)
[2016-12-15 20:09] LABS: BACTERIA,URINE FEW /HPF; RBC,URINE 0-2 /HPF (0 - 0); WBC,URINE 0-2 /HPF (0 - 0)
[2016-12-15 20:30] VITALS: BP 165/58
[2016-12-15 20:32] VITALS: BP 165/58
--- NOTE | 2016-12-15 21:00 | Emergency Room Report ---
History of Present Illness General Chief Complaint: Hypertension Source: Patient Present Illness HPI 71-year-old M presents ED for evaluation. Son at bedside states that patient has high blood pressure and blood pressures been higher than normal today. Systolic blood pressure greater than 200 earlier today. Patient has any chest pain. Denies any dizziness or headache. States states he had shortness of breath earlier today but denies any at this time. Denies fevers or chills. No aggravating relieving factors. Denies any other systems symptoms Allergies: Coded Allergies: No Known Allergies (Unverified , 11/23/16) Patient History Past Medical History: HTN Past Surgical History: none Pertinent Family History: none Social History: Denies: smoking, alcohol use, drug use Immunizations: UTD Reviewed Nursing Documentation: PMH: Agreed, PSxH: Agreed Nursing Documentation-PMH Past Medical History: No History, Except For Hx Cardiac Problems: Yes - Bilateral knee surgery Hx Hypertension: Yes Hx Pacemaker: No Hx Asthma: No Hx COPD: No Hx Diabetes: No Hx Cancer: No Hx Gastrointestinal Problems: No History Of Psychiatric Problem: No Hx Neurological Problems: Yes - Parkinson' disease Hx Cerebrovascular Accident: No Hx Parkinson's Disease: Yes Hx Seizures: No Hx Tremors: Yes Review of Systems All Other Systems: negative except mentioned in HPI Physical Exam Vital Signs Date Time Temp Pulse Resp B/P (MAP) Pulse Ox O2 Delivery O2 Flow Rate FiO2 12/15/16 17:58 98.1 65 16 176/101 99 Room Air Sp02 EP Interpretation: reviewed, normal General Appearance: no apparent distress, alert, GCS 15, non-toxic, obese Head: normocephalic, atraumatic Eyes: bilateral eye normal inspection, bilateral eye PERRL ENT: hearing grossly normal, normal pharynx, no angioedema, normal voice Neck: full range of motion, supple/symm/no masses Respiratory: chest non-tender, lungs clear, normal breath sounds, speaking full sentences Cardiovascular #1: regular rate, rhythm, no edema Cardiovascular #2: 2+ carotid (R), 2+ carotid (L), 2+ radial (R), 2+ radial (L) , 2+ dorsalis pedis (R), 2+ dorsalis pedis (L) Gastrointestinal: normal bowel sounds, non tender, soft, non-distended, no guarding, no rebound Rectal: deferred Genitourinary: normal inspection, no CVA tenderness Musculoskeletal: back normal, gait/station normal, normal range of motion, non- tender Neurologic: alert, oriented x3, responsive, motor strength/tone normal, sensory intact, speech normal Psychiatric: judgement/insight normal, memory normal, mood/affect normal, no suicidal/homicidal ideation Reflexes: 3+ bicep (R), 3+ bicep (L), 3+ tricep (R), 3+ tricep (L), 3+ knee (R) , 3+ knee (L) Skin: normal color, no rash, warm/dry, well hydrated Lymphatic: no adenopathy Medical Decision Making Diagnostic Impression: Primary Impression: Hypertension Qualified Codes: I10 - Essential (primary) hypertension ER Course Hospital Course 71-year-old male presents ED complaining of elevated BP, no symptoms at this time Differential diagnoses include: hypertensive urgency, hypertensive emergency, arrythmia, ND/ACS Clinical course Patient placed on stretcher. After initial history and physical I ordered labs , EKG, chest x-ray. labs reviewed- all electrolytes normal, troponins negative, no leukocytosis, hemoglobin/hematocrit stable EKG - NSR, no acute ischemic changes interpreted by me Chest x-ray-no cardiomegaly, no rib fracture, no pneumothorax, no acute process Upon reassessment patient's BP has reduced on its own without intervention. I offered patient option for admission they declined stating he would rather be discharged. Will take his blood pressure medications as directed. Will track his blood pressure and followup with PMD I. I feel this is a highly complex case requiring extensive working including EKG/Rhythm strip, Xray/CT/US, Blood/urine lab work, repeat exams while in ED, and administration of strong opiates/narcotics for pain control, admission to hospital or close patient follow up. Diagnosis - hypertension Stable and discharged to home. take medications as directed. Instructed to followup with PMD. Return to ED if symptoms recur or worsen Labs Test 12/15/16 18:40 12/15/16 19:30 White Blood Count 6.4 K/UL (4.8-10.8) Red Blood Count 4.85 M/UL (4.70-6.10) Hemoglobin 15.3 G/DL (14.2-18.0) Hematocrit 48.3 % (42.0-52.0) Mean Corpuscular Volume 100 FL (80-99) Mean Corpuscular Hemoglobin 31.6 PG (27.0-31.0) Mean Corpuscular Hemoglobin Concent 31.7 G/DL (32.0-36.0) Red Cell Distribution Width 11.4 % (11.6-14.8) Platelet Count 127 K/UL (150-450) Mean Platelet Volume 8.4 FL (6.5-10.1) Neutrophils (%) (Auto) 57.6 % (45.0-75.0) Lymphocytes (%) (Auto) 28.3 % (20.0-45.0) Monocytes (%) (Auto) 9.5 % (1.0-10.0) Eosinophils (%) (Auto) 3.7 % (0.0-3.0) Basophils (%) (Auto) 0.9 % (0.0-2.0) Sodium Level 137 mEQ/L (135-145) Potassium Level 3.9 mEQ/L (3.4-4.9) Chloride Level 100 mEQ/L (98-107) Carbon Dioxide Level 25 mEQ/L (20-30) Anion Gap 12 (5-15) Blood Urea Nitrogen 13 mg/dL (7-23) Creatinine 0.8 mg/dL (0.7-1.2) Estimat Glomerular Filtration Rate mL/min (>60) Glucose Level 120 mg/dL (74-106) Calcium Level 11.0 mg/dL (8.6-10.2) Total Bilirubin 0.9 mg/dL (0.0-1.2) Aspartate Amino Transf (AST/SGOT) 15 U/L (5-40) Alanine Aminotransferase (ALT/SGPT) 7 U/L (3-41) Alkaline Phosphatase 65 U/L (40-129) Total Creatine Kinase 49 U/L (38-174) Creatine Kinase MB 1.6 ng/mL (< 6.7) Creatine Kinase MB Relative Index 3.2 Troponin I < 0.30 ng/mL (<=0.30) Pro-B-Type Natriuretic Peptide 419 pg/mL (0-125) Total Protein 7.1 g/dL (6.6-8.7) Albumin 4.0 g/dL (3.5-5.2) Globulin 3.1 g/dL Albumin/Globulin Ratio 1.2 (1.0-2.7) Urine Color Yellow Urine Appearance Clear Urine pH 6.5 (4.5-8.0) Urine Specific [place] 1.015 (1.005-1.035) Urine Protein 3+ (NEGATIVE) Urine Glucose (UA) Negative (NEGATIVE) Urine Ketones 2+ (NEGATIVE) Urine Occult Blood 1+ (NEGATIVE) Urine Nitrite Negative (NEGATIVE) Urine Bilirubin Negative (NEGATIVE) Urine Urobilinogen 1 MG/DL (0.0-1.0) Urine Leukocyte Esterase 1+ (NEGATIVE) Urine RBC 0-2 /HPF (0 - 0) Urine WBC 0-2 /HPF (0 - 0) Urine Squamous Epithelial Cells None /LPF (NONE/OCC) Urine Bacteria Few /HPF (NONE) EKG Diagnostic Results Rate: normal Rhythm: NSR ST Segments: no acute changes ASA given to the pt in ED: No Rhythm Strip Diag. Results EP Interpretation: yes Rhythm: NSR, no PVC's, no ectopy Chest X-Ray Diagnostic Results Chest X-Ray Diagnostic Results : Chest X-Ray Ordered: Yes # of Views/Limited/Complete: 1 View Indication: Shortness of Breath EP Interpretation: Yes Interpretation: no consolidation, no effusion, no pneumothorax, no acute cardiopulmonary disease Impression: No acute disease Electronically Signed by: Electronically signed by Lalo Venegas MD Last Vital Signs Date Time Temp Pulse Resp B/P (MAP) Pulse Ox O2 Delivery O2 Flow Rate FiO2 12/15/16 17:58 98.1 65 16 176/101 99 Room Air Status: improved Disposition: HOME, SELF-CARE Condition: Stable Referrals: NOT CHOSEN IPA/,REFERRING (PCP) Patient Instructions: Hypertension, [id number] LALO VENEGAS M.D. Dec 15, 2016 21:00
--- NOTE | 2016-12-16 10:47 | Diagnostic Imaging Report ---
Indication: Dyspnea Comparison: 11/23/16 A single view chest radiograph was obtained. Findings: Interstitial opacities and prominent pulmonary demonstrated. Heart size is normal. The bones are slightly osteopenic. Impression: Mild interstitial edema
[2016-12-16] MEDS ORDERED: ATIVAN0.5 MG ORAL (21:44)
--- NOTE | 2016-12-22 23:26 | Cardiology Report ---
APPROVED REPORT EKG Measurement Heart [id number] HI 138P [id number] Normal sinus rhythm Normal ECG
== END 2016-12-15 20:32 | disposition home or self-care (01) ==
LOC: EMR 18:32 → EDBEDREQ 20:16 → EMR 20:32
DX: I10 Essential (primary) hypertension (principal); G20 Parkinson's disease
CPT/HCPCS: 36415; 71010; 80053; 81003; 82550; 82553; 83880; 84484; 85025; 93005; 99284

== ENCOUNTER 2016-12-16 18:15 | Emergency (ER) | payer MEDICARE ==
[~2016-12-16] VITALS: Ht 177.8 cm; Wt 90.7 kg
--- NOTE | 2016-12-16 18:32 | Emergency Room Report ---
History of Present Illness General Chief Complaint: To Be Triaged Source: Patient, Family Member Present Illness HPI 71YOM with chest pain for 1 month. Feels "very anxious because his a few months ago." Denies SOB, nausea/vomiting, diaphoresis, fever/chills, cough BP elevated on triage 12/15 CXR: mild insterstial edema. BNP 400. Tropo/ECG was normal. Patient signed out AMA - BP reduced on its own without intervention 11/24 Echo: Normal LV size and systolic function EF 60-65% Daughter endorses patient suffers from a lot of anxiety since of History of parkinons. Right arm tremor Allergies: Coded Allergies: No Known Allergies (Unverified , 11/23/16) Patient History Past Medical History: none Past Surgical History: none Pertinent Family History: none Social History: Denies: smoking, alcohol use, drug use Immunizations: UTD Reviewed Nursing Documentation: PMH: Agreed, PSxH: Agreed Nursing Documentation-PMH Hx Cardiac Problems: Yes - Bilateral knee surgery Hx Hypertension: Yes Hx Pacemaker: No Hx Asthma: No Hx COPD: No Hx Diabetes: No Hx Cancer: No Hx Gastrointestinal Problems: No Hx Neurological Problems: Yes - Parkinson' disease Hx Cerebrovascular Accident: No Hx Parkinson's Disease: Yes Hx Seizures: No Hx Tremors: Yes Review of Systems All Other Systems: negative except mentioned in HPI Physical Exam Sp02 EP Interpretation: reviewed, normal General Appearance: normal inspection, well appearing, no apparent distress, alert, GCS 15, non-toxic, other - Very anxious Head: normocephalic, atraumatic ENT: normal ENT inspection, hearing grossly normal, normal voice Neck: normal inspection, full range of motion, supple, no bony tend Respiratory: normal inspection, lungs clear, normal breath sounds, no respiratory distress, no retraction, no wheezing Cardiovascular #1: regular rate, rhythm, no edema Gastrointestinal: normal inspection, normal bowel sounds, non tender, soft, no guarding, no hernia Genitourinary: no CVA tenderness Musculoskeletal: normal inspection, back normal, normal range of motion, Nicolasa' s Sign negative Neurologic: normal inspection, alert, oriented x3, responsive, speech normal, other - Right hand resting tremor Psychiatric: normal inspection, judgement/insight normal, mood/affect normal Skin: normal inspection, normal color, no rash, warm/dry Lymphatic: normal inspection Medical Decision Making Diagnostic Impression: Primary Impression: Hypertension ER Course BP came down to 120/80 without ED intervention CXR unchanged from yesterday ECG remains NSR. Labs: No leuks. H&H stable. Troponin <0.05 Given PO ativan with improvement in anxiety Unlikely ACS given improvement with ativan, under a lot of stress with 's recent passing, normal labs/ECG last 2 days here PMD followup as needed Rx ativan EKG Diagnostic Results Rate: normal Rhythm: NSR Rhythm Strip Diag. Results EP Interpretation: yes Rate: 61 Rhythm: NSR, no ectopy, other - PVCs Chest X-Ray Diagnostic Results Chest X-Ray Diagnostic Results : Chest X-Ray Ordered: Yes # of Views/Limited/Complete: 1 View Indication: Chest Pain EP Interpretation: Yes Interpretation: no consolidation, no effusion, no pneumothorax, no acute cardiopulmonary disease Impression: No acute disease Electronically Signed by: Dr Sreedhar Duncan Status: improved Disposition: HOME, SELF-CARE Scripts Lorazepam* (ATIVAN*) 0.5 Mg Tablet 0.5 MG ORAL BID for For Anxiety for 7 Days, #30 TAB Prov: SREEDHAR DUNCAN M.D. 12/16/16 SREEDHAR DUNCAN M.D. Dec 16, 2016 18:32
[2016-12-16] MEDS ORDERED: LORazepam 0.5mg tab ORAL ONE (19:00)
[2016-12-16 19:20] VITALS: BP 147/58
[2016-12-16 19:27] LABS: BASOPHILS % (AUTO) 0.8 % (0.0-2.0); EOSINOPHILS % (AUTO) 3.5 % (0.0-3.0); LYMPHOCYTES % (AUTO) 23.3 % (20.0-45.0); MEAN CORPUSCULAR HEMOGLOBIN 31.3 PG (27.0-31.0); MEAN CORPUSCULAR HGB CONC 31.5 G/DL (32.0-36.0); MEAN CORPUSCULAR VOLUME 99 FL (80-99); MEAN PLATELET VOLUME 9.7 FL (6.5-10.1); MONOCYTES % (AUTO) 6.7 % (1.0-10.0); NEUTROPHILS % (AUTO) 65.7 % (45.0-75.0); PLATELET COUNT 148 K/UL (150-450); RED BLOOD COUNT 4.93 M/UL (4.70-6.10); RED CELL DISTRIBUTION WIDTH 11.3 % (11.6-14.8); WHITE BLOOD COUNT 8.1 K/UL (4.8-10.8)
[2016-12-16 21:16] LABS: ALANINE AMINOTRANSFERASE 16 U/L (3-41); ALBUMIN/GLOBULIN RATIO 1.6 (1.0-2.7); ANION GAP 15 (5-15); ASPARTATE AMINO TRANSFERASE 16 U/L (5-40); CALCIUM 11.1 mg/dL (8.6-10.2); CARBON DIOXIDE 22 mEQ/L (20-30); CHLORIDE 100 mEQ/L (98-107); CREATININE 0.7 mg/dL (0.7-1.2); HEMOLYSIS 52; POTASSIUM 4.3 mEQ/L (3.4-4.9); SODIUM 137 mEQ/L (135-145); TOTAL PROTEIN 6.8 g/dL (6.6-8.7)
[2016-12-16 21:26] LABS: CKMB 2.1 ng/mL (< 6.7)
[2016-12-16] MEDS ORDERED: ATIVAN0.5 MG ORAL (21:44)
[2016-12-16 21:45] VITALS: BP 154/82
[2016-12-16 21:50] VITALS: BP 154/82
--- NOTE | 2016-12-17 10:24 | Diagnostic Imaging Report ---
Indication: Chest pain Technique: XRAY CHEST 1 V Comparison: 12/15/16 Findings: Cardiomediastinal silhouette is stable. Atherosclerotic changes are seen. There is mild central pulmonary vascular congestion and interstitial edema. Impression: No significant change from 12/15/16.
--- NOTE | 2016-12-22 23:11 | Cardiology Report ---
APPROVED REPORT EKG Measurement Heart [id number] NM 132P [id number] Ectopic atrial rhythm with occasional premature ventricular complexes Otherwise normal ECG
== END 2016-12-16 21:50 | disposition home or self-care (01) ==
LOC: EMR 20:00
DX: I10 Essential (primary) hypertension (principal); R07.89 Other chest pain; G20 Parkinson's disease; F43.9 Reaction to severe stress, unspecified
CPT/HCPCS: 36415; 71010; 80053; 80300; 82550; 82553; 83880; 84484; 85025; 93005; 99283